=== PATIENT | male | born 1965 | race African-American/Black ===

== ENCOUNTER 2019-09-22 22:36 | Emergency (ER) | payer MEDICAID ==
[~2019-09-22] VITALS: Ht 175.3 cm; Wt 95.3 kg
[2019-09-22 23:07] VITALS: BP_SYST 148
--- NOTE | 2019-09-22 23:11 | NUR ---
Patient triaged and placed in waiting room. VSS and patient appears in no acute distress at this time. Accompanied by GIRLFRIEND, awaiting available bed, and MD notified of need for MSE.
--- NOTE | 2019-09-23 00:46 | NUR ---
Pt ambulatory to bed 7 for evaluation
--- NOTE | 2019-09-23 00:50 | NUR ---
ER Dr. Keenan at bedside examining patient.
--- NOTE | 2019-09-23 00:56 | NUR ---
patient aaox 4 complaining of sinus pain and right eye swelling starting yesterday. Reports being diagnosed with sinusitis and finished abx. Denies any change of vision. Denies any pain at this time. No other complaints/injuries per patient or as noted. Will continue to monitor.
[2019-09-23] MEDS ORDERED: KETOROLAC TROMETHAMINE 30 MG VIAL IM ONE (01:15)
[2019-09-23] MEDS ORDERED: OXYMETAZOLINE HCL 0.05% NASAL SPRAY NS ONE (01:15)
[2019-09-23] MEDS ORDERED: PREDNISONE 20 MG TABLET PO ONE (01:15)
--- NOTE | 2019-09-23 01:33 | NUR ---
medicated per md orders.
[2019-09-23 01:35] VITALS: BP_SYST 136
--- NOTE | 2019-09-23 01:35 | NUR ---
Patient given written and verbal discharge instructions and verbalizes understanding. ER MD discussed with patient the results and treatment provided. Patient in stable condition. ID arm band removed. Rx of Augmentin, Prednisone, Naprosyn, and Sudafed given. Patient educated on pain management and to follow up with PMD. Pain Scale 0/10 Opportunity for questions provided and answered. Medication side effect fact sheet provided.
== END 2019-09-23 01:35 | disposition home or self-care (01) ==
LOC: SED 22:36
DX: J32.9 Chronic sinusitis, unspecified (principal)
CPT/HCPCS: 96372; 99283; J1885; J7512